=== PATIENT | male | born 1955 | race Caucasian/White ===

== ENCOUNTER 2019-08-10 11:42 | Inpatient (IN) | payer MEDICARE, OTHER ==
[2019-08-10] MEDS ORDERED: DILTIAZEM HCL/D5W 125 MG/125 ML RTUINJ IV PRN ×2 (12:01→13:58)
[2019-08-10] MEDS ORDERED: DILTIAZEM HCL INJ 25 MG/5 ML VIAL IV ONE ×2 (12:01→13:13)
[2019-08-10] MEDS ORDERED: IPRATROPIUM/ALBUTEROL 0.5-2.5 MG/3 ML AMPUL NEB ONE (12:01)
[2019-08-10 12:19] LABS: ABSOLUTE BASOPHILS # (AUTO) 0.1 10^3/uL (0.0-0.2); ABSOLUTE EOSINOPHILS # (AUTO) 1.9 10^3/uL (0.0-0.6); ABSOLUTE MONOCYTES (AUTO) 0.6 10^3/uL (0.1-1.4); ABSOLUTE NEUT (AUTO) 4.2 10^3/uL (1.7-8.2); BASOPHILS % (AUTO) 1.2 % (0-2); EOSINOPHILS % (AUTO) 21.8 % (0-6); HEMATOCRIT 44.9 % (37.9-51.0); HEMOGLOBIN 15.9 g/dL (13.5-17.0); LYMPHOCYTES % (AUTO) 22.3 % (13-45); MEAN CORPUSCULAR HEMOGLOBIN 28.5 pg (27.0-33.4); MEAN CORPUSCULAR HGB CONC 35.3 g/dL (32.0-36.0); MEAN CORPUSCULAR VOLUME 81 fl (80-97); MONOCYTES % (AUTO) 6.6 % (3-13); PLATELET COUNT 254 10^3/uL (150-450); RED BLOOD COUNT 5.57 10^6/uL (4.35-5.55); SEGMENTED NEUTROPHILS % (AUTO) 48.1 % (42-78); TOTAL CELLS COUNTED % (AUTO) 100 %; WHITE BLOOD COUNT 8.8 10^3/uL (4.0-10.5)
--- NOTE | 2019-08-10 12:19 | EKG REPORT ---
SEVERITY:- ABNORMAL ECG - ATRIAL FIBRILLATION WITH RVR MINIMAL ST DEPRESSION, ANTEROLATERAL LEADS : Confirmed by: Billy You MD 10-Aug-2019 12:19:07
--- NOTE | 2019-08-10 12:27 | RADIOLOGY REPORT (SQ) ---
EXAM DESCRIPTION: CHEST SINGLE VIEW IMAGES COMPLETED DATE/TIME: 08/10/2019 12:17 pm REASON FOR STUDY: CHF COMPARISON: None. EXAM PARAMETERS: NUMBER OF VIEWS: One view. TECHNIQUE: Single frontal radiographic view of the chest acquired. RADIATION DOSE: NA LIMITATIONS: None. FINDINGS: LUNGS AND PLEURA: Pulmonary vascular congestion. No pulmonary edema. MEDIASTINUM AND HILAR STRUCTURES: No masses. Contour normal. HEART AND VASCULAR STRUCTURES: Heart size is borderline. BONES: No acute findings. HARDWARE: None in the chest. OTHER: No other significant finding. IMPRESSION: Borderline cardiomegaly without jesus pulmonary edema. TECHNICAL DOCUMENTATION: JOB ID: [id number] 2010 [employer]- All Rights Reserved Reading location - IP/workstation name: [email or web address]
[2019-08-10 12:31] LABS: ALBUMIN 3.6 g/dL (3.5-5.0); ALKALINE PHOSPHATASE 98 U/L (38-126); ANION GAP 5 (5-19); ASPARTATE AMINO TRANSFERASE 31 U/L (17-59); BILIRUBIN,TOTAL 0.9 mg/dL (0.2-1.3); BLOOD UREA NITROGEN 14 mg/dL (7-20); CALCIUM 8.9 mg/dL (8.4-10.2); CARBON DIOXIDE 25 mmol/L (22-30); CHLORIDE 108 mmol/L (98-107); CREATINE KINASE 235 U/L (55-170); GLUCOSE 108 mg/dL (75-110); POTASSIUM 4.2 mmol/L (3.6-5.0); TOTAL PROTEIN 7.2 g/dL (6.3-8.2)
[2019-08-10 12:43] LABS: NT PRO BNP 190 pg/mL (<125)
[2019-08-10 12:48] LABS: TROPONIN I < 0.012 ng/mL
--- NOTE | 2019-08-10 13:07 | ER Document Report ---
Entered by LETITIA ABBASI SCRIBE 08/10/19 1200 Acting as scribe for:JOSETTE CORBETT MD ED Respiratory Problem - General Stated Complaint: SHORTNESS OF BREATH Time Seen by Provider: 08/10/19 11:52 Mode of Arrival: Medic Information source: Patient Notes: This 64 year old male patient presents to the emergency department today with complaints of shortness of breath which has been present since being diagnosed with pneumonia in April. Patient reports that he was admitted to [facility] in [facility] for 3 days in early April for this pneumonia. Patient states after this admission he retired from working, then moved to this area May 23. Patient states he has continued to be short of breath since this admission for pneumonia but the shortness of breath became worse yesterday. Patient states he "felt like he was drowning". Patient states he was discharged with an albuterol inhaler but he is now out of the medicine. Patient states he has chest pain but only if he breathes deeply. Patient denies any leg swelling. EMS reports patient was in atrial fibrillation with a rate bouncing between 140 and 160. They gave him Cardizem 10 mg IV, they did not start a drip. It did slow his rate down into the 130s. - Related Data Allergies/Adverse Reactions: Penicillins Allergy (Verified 08/10/19 14:05) Past Medical History - General Information source: Patient - Social History Smoking Status: Former Smoker - quit 15 years ago Cigarette use (# per day): No Frequency of alcohol use: None Drug Abuse: None Occupation: retired Family History: Reviewed & Not Pertinent - Medical History Medical History: Negative Past Surgical History: Reports: Hx Cholecystectomy, Hx Herniorrhaphy - Ventral. repaired with mesh Review of Systems - Review of Systems Constitutional: No symptoms reported EENT: No symptoms reported Cardiovascular: denies: Chest pain Respiratory: See HPI, Hurts to breathe, Short of breath, Wheezing Gastrointestinal: No symptoms reported Genitourinary: No symptoms reported Male Genitourinary: No symptoms reported Musculoskeletal: denies: Leg swelling, Ankle swelling Skin: No symptoms reported Hematologic/Lymphatic: No symptoms reported Neurological/Psychological: No symptoms reported -: Yes All other systems reviewed and negative Physical Exam - Vital signs Vitals: Resp Pulse Ox 18 92 08/10/19 11:44 08/10/19 11:44 - Notes Notes: Physical Exam: General: Alert, appears well. HEENT: Normocephalic. Atraumatic. PERRL. Extraocular movements intact. Oropharynx clear. Neck: Supple. Non-tender. Respiratory: Mildly tachypneic. Bibasilar rales, rhonchi bilaterally with wheezing. Cardiovascular: Irregularly irregular, tachycardic. Abdominal: Normal Inspection. Non-tender. No distension. Normal Bowel Sounds. Back: No gross abnormalities. Extremities: Moves all four extremities. Upper extremities: Normal inspection. Normal ROM. Lower extremities: Normal inspection. No edema. Normal ROM. Neurological: Normal cognition. AAOx4. Normal speech. Psychological: Normal affect. Normal Mood. Skin: Warm. Dry. Normal color. Course - Vital Signs Vital signs: Temp Pulse Resp BP Pulse Ox 98.9 F 19 140/79 H 96 08/10/19 11:57 08/10/19 18:31 08/10/19 18:31 08/10/19 18:31 - Laboratory Result Diagrams: 08/10/19 11:54 08/10/19 11:54 Laboratory results interpreted by me: 08/10/19 08/10/19 08/10/19 11:54 11:54 11:54 RBC 5.57 H RDW 15.0 H Eos % (Auto) 21.8 H Absolute Eos (auto) 1.9 H Chloride 108 H Creatine Kinase 235 H NT-Pro-B Natriuret Pep 190 H - Diagnostic Test Radiology reviewed: Image reviewed, Reports reviewed - Chest x-ray shows cardiomegaly with mild pulmonary vascular congestion without jesus pulmonary edema. - EKG Interpretation by Nm EKG shows normal: [place], Intervals, QRS Complexes. abnormal: ST-T Waves - M inimal anterolateral ST depression Rate: Tachycardia - 136 Rhythm: A.Fib Critical Care Note - Critical Care Note Total time excluding time spent on procedures (mins): 30 Comments: At least 30 minutes devoted to patient evaluation, history physical, checking labs and x-rays. Reevaluating after interventions. Phone calls to hospitalist to arrange admission. Discharge - Discharge Clinical Impression: New onset atrial fibrillation, Atrial fibrillation with rapid ventricular response, Pulmonary vascular congestion, Shortness of breath, Chronic bronchitis with bronchospasm Condition: Stable Disposition: ADMITTED INPATIENT Admitting Provider: Seymour (Hospitalist) Unit Admitted: IMCU I personally performed the services described in the documentation, reviewed and edited the documentation which was dictated to the scribe in my presence, and it accurately records my words and actions.
[2019-08-10] MEDS ORDERED: FUROSEMIDE INJ/PF 20 MG/2 ML SDV IV ONE (13:14)
[2019-08-10] MEDS ORDERED: LEVALBUTEROL HCL NEB 0.63 MG/3 ML AMPUL NEB PRN (13:54)
[2019-08-10] MEDS ORDERED: ACETAMINOPHEN 325 MG TABLET PO PRN (13:54)
[2019-08-10] MEDS ORDERED: ZOLPIDEM TARTRATE 5 MG TABLET PO PRN (13:54)
[2019-08-10] MEDS ORDERED: ONDANSETRON HCL INJ/PF 4 MG/2 ML SDV IV PRN (13:54)
--- NOTE | 2019-08-10 14:06 | PDOC H&P ---
History of Present Illness Admission Date/PCP: 08/10/19 13:37 Patient complains of: Referred by urgent care center for A. fib with RVR. History of Present Illness: MARY JO FREGOSO is a 64 year old male history of A. fib, mini stroke several years ago used to be on Plavix not anymore, chronic pains in the lower extremities on gabapentin, ex-smoker came to the emergency room with complaints of shortness of breath. He was recently admitted in [place] for shortness of breath found to have pneumonia and treated. Continue to have shortness of breath decided to go to the urgent care center routine EKG was done found to be in A. fib with RVR. Patient was sent to the emergency room for further evaluation. Patient's main complaint is shortness of breath denies any palpitations. In the emergency room loading dose of diltiazem 10 mg was given started on diltiazem drip another dose of 15 mg of diltiazem was given heart rate is around 110 in A. fib now. Patient denies any chest pains and after receiving small dose of Lasix shortness of breath improving. Patient denies any drug use. wants to be DNR/DNI. Past Medical History Cardiac Medical History: Reports: Atrial Fibrillation Neurological Medical History: Reports: Ischemic CVA Past Surgical History Past Surgical History: Reports: Cholecystectomy, Herniorrhaphy - Ventral. repaired with mesh Social History Smoking Status: Former Smoker - quit 15 years ago - Advance Directive Resuscitation Status: Do Not Resuscitate Family History Family History: Reviewed & Not Pertinent Parental Family History Reviewed: Yes - Family history of heart disease. Children Family History Reviewed: Yes Sibling(s) Family History Reviewed.: Yes Review of Systems Constitutional: ABSENT: fatigue, fever(s), weakness Eyes: ABSENT: visual disturbances Ears: ABSENT: hearing changes Nose, Mouth, and Throat: ABSENT: sore throat Cardiovascular: PRESENT: dyspnea on exertion. ABSENT: chest pain, orthropnea Respiratory: PRESENT: dyspnea Gastrointestinal: ABSENT: abdominal pain, constipation, diarrhea, hematemesis, hematochezia, nausea, vomiting Genitourinary: ABSENT: dysuria, hematuria Integumentary: ABSENT: rash, wounds Neurological: ABSENT: abnormal gait, abnormal speech, confusion, dizziness, focal weakness, syncope Psychiatric: ABSENT: anxiety, depression, homidical ideation, suicidal ideation Physical Exam Vital Signs: Temp Pulse Resp BP Pulse Ox 98.9 F 24 H 121/88 H 96 08/10/19 11:57 08/10/19 13:20 08/10/19 13:20 08/10/19 13:20 Intake & Output 08/09/19 08/10/19 08/11/19 06:59 06:59 06:59 Intake Total 3 Balance 3 General appearance: PRESENT: mild distress, well-developed Head exam: PRESENT: atraumatic Eye exam: PRESENT: PERRLA Mouth exam: PRESENT: moist, tongue midline Teeth exam: PRESENT: poor dentation Neck exam: ABSENT: carotid bruit, JVD, lymphadenopathy, thyromegaly Respiratory exam: PRESENT: wheezes Cardiovascular exam: PRESENT: irregular rhythm, tachycardia Pulses: PRESENT: normal dorsalis pedis pul GI/Abdominal exam: PRESENT: normal bowel sounds, soft. ABSENT: distended, guarding, mass, organolmegaly, rebound, tenderness Rectal exam: PRESENT: deferred Neurological exam: PRESENT: alert, awake, oriented to person, oriented to place, oriented to time, oriented to situation, CN II-XII grossly intact. ABSENT: motor sensory deficit Psychiatric exam: PRESENT: appropriate affect, normal mood. ABSENT: homicidal ideation, suicidal ideation Results Laboratory Results: 08/10/19 11:54 08/10/19 11:54 08/10/19 08/10/19 08/10/19 11:54 11:54 12:20 WBC 8.8 RBC 5.57 H Hgb 15.9 Hct 44.9 MCV 81 MCH 28.5 MCHC 35.3 RDW 15.0 H Plt Count 254 Seg Neutrophils % 48.1 Sodium 138.2 Potassium 4.2 Chloride 108 H Carbon Dioxide 25 Anion Gap 5 BUN 14 Creatinine 1.03 Est GFR ( Amer) > 60 Glucose 108 Lactic Acid 1.0 Calcium 8.9 Magnesium 2.1 Total Bilirubin 0.9 AST 31 Alkaline Phosphatase 98 Total Protein 7.2 Albumin 3.6 08/10/19 08/10/19 11:54 11:54 Creatine Kinase 235 H Troponin I < 0.012 NT-Pro-B Natriuret Pep 190 H Impressions: Chest X-Ray 08/10/19 12:00 IMPRESSION: Borderline cardiomegaly without jesus pulmonary edema. Assessment and Plan - Diagnosis (1) Atrial fibrillation with rapid ventricular response Is this a current diagnosis for this admission?: Yes Plan: 08/10/2019-patient is going to be admitted to [facility] as an inpatient with a diagnosis of atrial fib with RVR. To continue Cardizem drip. Echocardiogram was requested. Start on Lovenox 1 mg/kg every 12 hours. GI prophylaxis ini tiated. To start him on atorvastatin 10 mg p.o. nightly. Lipid panel and hemoglobin A1c was requested for tomorrow. Consultation with Dr. Laurent was requested. To do the urine drug screen. (2) Pulmonary vascular congestion Is this a current diagnosis for this admission?: Yes Plan: 08/10/2019-patient came in with complaints of shortness of breath chest x-ray shows cardiomegaly without any jesus edema. After giving a small dose of Lasix in the ER shortness of breath is improving. Echocardiogram is pending at this point. (3) HTN (hypertension) Is this a current diagnosis for this admission?: No Plan: 08/10/2019-patient history of hypertension and not on any medications blood pressure is 120/70 today. To closely monitor the blood pressures on regular basis. (4) Stroke Is this a current diagnosis for this admission?: No Plan: 08/10/2019-patient is given the history of mini strokes several years ago on Plavix for a short while. Presently not on aspirin not on Plavix not on ch olesterol medications. Started on atorvastatin and to start him on aspirin 81 mg p.o. daily.
--- NOTE | 2019-08-10 15:46 | PDOC CONSULTATION ---
Consultation-Blank Consultation: CARDIOLOGY CONSULTATION BY Dr. Jodie Laurent on 08/10/2019. Patient seen at 5 PM on 08/10/2019. 60 minutes spent on the patient with more than 50% of time spent direct patient care. CONSULT REQUESTING PHYSICIANS: Dr. Seymour [facility]. REASON FOR CONSULTATION: Paroxysmal atrial fibrillation, with shortness of breath. HISTORY OF PRESENT ILLNESS: Patient is a 64-year-old male who states that a month or so ago in [place] he had shortness of breath and was found to have a pneumonia and was treated for that. The patient states he continues to have shortness of breath especially with exertion. And hence he came to the emergency room where his EKG showed the patient atrial fibrillation with rapid ventricular response. The patient's claims that he has a past history of atrial fibrillation which is paroxysmal. He states that he has had TIAs x2 in the past and is been on Plavix will still stopped. The patient is an ex-smoker. He denies diabetes mellitus or hypertension. He does have clinical examination of consistent with COPD, but the patient's not on any inhalers. There is no history of thyroid disease. There is no history of angina or coronary artery disease. No history of MD. No history of congestive heart failure. Patient denies any palpitations even when he had atrial fibrillation with rapid response. The patient was started on a Cardizem drip and is converted to sinus rhythm. He has a history of chronic leg pain on gabapentin. Past Medical History Cardiac Medical History: Reports: Atrial Fibrillation Neurological Medical History: Reports: Ischemic CVA Past Surgical History Past Surgical History: Reports: Cholecystectomy, Herniorrhaphy - Ventral. 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 Family History Family History: Reviewed & Not Pertinent Parental Family History Reviewed: Yes - Family history of heart disease. Children Family History Reviewed: Yes Sibling(s) Family History Reviewed.: Yes Current Medications Generic Name Dose Route Start Last Admin Trade Name Freq PRN Reason Stop Dose Admin Acetaminophen 650 mg 08/10/19 13:54 Tylenol 325 Mg Tablet PO 09/09/19 13:53 Q4HP PRN FEVER >101 Apixaban 5 mg 08/10/19 18:00 06/18/20 22:45 Eliquis 5 Mg Tablet PO 09/09/19 17:59 5 mg BID MANUEL Administration Aspirin 81 mg 08/10/19 22:00 08/10/19 22:45 Aspirin 81 Mg Chewable Tablet PO 09/09/19 21:59 81 mg QHS MANUEL Administration Atorvastatin Calcium 10 mg 08/10/19 22:00 08/10/19 22:45 Lipitor 10 Mg Tablet PO 09/09/19 21:59 10 mg QHS MANUEL Administration Diltiazem HCl 30 mg 08/11/19 00:00 08/10/19 23:54 Cardizem 30 Mg Tablet PO 09/10/19 00:00 30 mg Q6 MANUEL Administration Docusate Sodium 100 mg 08/10/19 18:00 08/10/19 22:47 Colace 100 Mg Capsule PO 09/09/19 17:59 Not Given BID MANUEL Famotidine 20 mg 08/10/19 22:00 08/10/19 22:45 Pepcid Inj/Pf 20 Mg/2 Ml Sdv IV 09/09/19 21:59 20 mg Q12 MANUEL Administration Gabapentin 300 mg 08/11/19 06:00 Neurontin 300 Mg Capsule PO 09/10/19 05:59 Q8 MANUEL Levalbuterol HCl 0.63 mg 08/10/19 13:54 Xopenex Neb 0.63 Mg/3 Ml Ampul NEB 09/09/19 13:53 RTQ6HP PRN SHORTNESS OF BREATH Ondansetron HCl 4 mg 08/10/19 13:54 Zofran Inj/Pf 4 Mg/2 Ml Sdv IV 09/09/19 13:53 Q6HP PRN FOR NAUSEA/VOMITING Pantoprazole Sodium 40 mg 08/11/19 06:[address] Tablet PO 09/10/19 05:59 Q6AM MANUEL Sodium Chloride 2.5 ml 08/10/19 14:00 08/10/19 22:46 Saline Flush 2.5 Ml Monoject Prefil Syrin IV 09/09/19 13:59 2.5 ml Q8 MANUEL Administration Zolpidem Tartrate 5 mg 08/10/19 13:54 Ambien 5 Mg Tablet PO 08/17/19 13:53 HSP PRN SLEEP OR INSOMNIA Discontinued Medications Generic Name Dose Route Start Last Admin Trade Name Freq PRN Reason Stop Dose Admin Albuterol/Ipratropium 3 ml 08/10/19 12:01 08/10/19 12:13 Duoneb 3 Ml Ampul NEB 08/10/19 12:02 3 ml NOW ONE Administration Diltiazem HCl 10 mg 08/10/19 12:01 08/10/19 12:13 Cardizem Inj 25 Mg/5 Ml Vial IV 08/10/19 12:02 10 mg NOW ONE Administration Diltiazem HCl 15 mg 08/10/19 13:13 08/10/19 13:25 Cardizem Inj 25 Mg/5 Ml Vial IV 08/10/19 13:14 15 mg NOW ONE Administration Diltiazem HCl 30 mg 08/10/19 21:00 Cardizem 30 Mg Tablet PO 09/09/19 20:59 Q6A MANUEL Enoxaparin Sodium 70 mg 08/10/19 22:00 Lovenox Inj 80 Mg/0.8 Ml Disp.Syrin SUBCUT 09/09/19 21:59 Q12 MANUEL Furosemide 20 mg 08/10/19 13:14 08/10/19 13:25 Lasix Inj/Pf 20 Mg/2 Ml Sdv IV 08/10/19 13:15 20 mg NOW ONE Administration Gabapentin 300 mg 08/10/19 22:45 08/10/19 22:45 Neurontin 300 Mg Capsule PO 08/10/19 22:46 300 mg NOW ONE Administration Diltiazem HCl 125 mg in 125 mls @ 0 mls/hr 08/10/19 12:01 08/10/19 15:22 Cardizem Rtu Inj 125 Mg-D5w 125 Ml Premix IV 09/09/19 12:00 Infused CONTINUOUS PRN Titration THIS MED IS NOT "PRN" Protocol Titrate Diltiazem HCl 125 mg in 125 mls @ 0 mls/hr 08/10/19 13:58 Cardizem Rtu Inj 125 Mg-D5w 125 Ml Premix IV 09/09/19 13:57 CONTINUOUS PRN THIS MED IS NOT "PRN" Protocol Titrate Review of Systems Constitutional: ABSENT: fatigue, fever(s), weakness Eyes: ABSENT: visual disturbances Ears: ABSENT: hearing changes Nose, Mouth, and Throat: ABSENT: sore throat Cardiovascular: PRESENT: dyspnea on exertion. ABSENT: chest pain, orthropnea Respiratory: PRESENT: dyspnea Gastrointestinal: ABSENT: abdominal pain, constipation, diarrhea, hematemesis, hematochezia, nausea, vomiting Genitourinary: ABSENT: dysuria, hematuria Integumentary: ABSENT: rash, wounds Neurological: ABSENT: abnormal gait, abnormal speech, confusion, dizziness, focal weakness, syncope Psychiatric: ABSENT: anxiety, depression, homidical ideation, suicidal ideation PHYSICAL EXAMINATION: The patient is well-built and well-nourished in no acute distress. Selected Entries 08/10/19 08/10/19 08/10/19 14:40 14:50 19:45 Heart Rate ( 64 Monitors) Respiratory 25 H 20 Rate Blood Pressure 118/63 Blood Pressure 81 Mean O2 Sat by Pulse 96 Oximetry Oxygen Flow 2.00 Rate Oxygen Delivery Nasal Cannula Method HEAD: Is atraumatic normocephalic. EYES: Pupils equal round regular reactive light accommodation. Extraocular movements are normal. There is no conjunctival pallor. There is no scleral icterus. EARS: Tympanic membranes are intact. External auditory canals are clear. NOSE: There is no deviated nasal septum. There is no inflammation of the nasal mucous membrane. MOUTH: Mucous membranes of mouth are moist. Tongue is moist. There is no ulcers. TONGUE: There is no redness of the oropharynx. There is no exudates. SKIN: There is no skin rashes. There is no petechia or ecchymosis. There is no skin lesions. NECK: Supple. There is no JVD carotids are equal there is no bruit. There is no lymphadenopathy. There is no accessory muscle respiration use. Trachea central. LUNGS: There is diminished air entry prolonged expiration. There is no rhonchi rales or wheezing. On percussion there is hyperresonance. There is no chest wall tenderness. HEART: S1-S2 is heard. S1 now is of normal intensity. There is no S3 gallop. There is an S4 gallop. There is systolic murmur left sternal border and the apex with no radiation. There is no rub. ABDOMEN: Soft. There is nontender. There is no paraspinal megaly. Bowel sounds are well heard. EXTREMITIES: Femorals are well felt. Leg pulses well felt. There is no pedal edema. There is no DVT or cellulitis. There is no DVT or cellulitis. There is no cyanosis or clubbing. 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 PSYCHIATRIC: The patient judgment insight are intact his affect is normal. Labs- Entire Visit 08/10/19 08/10/19 08/10/19 11:54 11:54 11:54 WBC 8.8 RBC 5.57 H Hgb 15.9 Hct 44.9 MCV 81 MCH 28.5 MCHC 35.3 RDW 15.0 H Plt Count 254 Lymph % (Auto) 22.3 Fannin % (Auto) 6.6 Eos % (Auto) 21.8 H Baso % (Auto) 1.2 Absolute Neuts (auto) 4.2 Absolute Lymphs (auto) 2.0 Absolute Monos (auto) 0.6 Absolute Eos (auto) 1.9 H Absolute Basos (auto) 0.1 Seg Neutrophils % 48.1 Sodium 138.2 Potassium 4.2 Chloride 108 H Carbon Dioxide 25 Anion Gap 5 BUN 14 Creatinine 1.03 Est GFR ( Amer) > 60 Est GFR (MDRD) Non-Af > 60 Glucose 108 Lactic Acid Calcium 8.9 Magnesium 2.1 Total Bilirubin 0.9 Direct Bilirubin 0.0 Neonat Total Bilirubin Not Reportable Neonat Direct Bilirubin Not Reportable Neonat Indirect Bili Not Reportable AST 31 ALT 26 Alkaline Phosphatase 98 Creatine Kinase 235 H Troponin I < 0.012 NT-Pro-B Natriuret Pep 190 H Total Protein 7.2 Albumin 3.6 Urine Color Urine Appearance Urine pH Ur Specific Sullivan Urine Protein Urine Glucose (UA) Urine Ketones Urine Blood Urine Nitrite Urine Bilirubin Urine Urobilinogen Ur Leukocyte Esterase Urine WBC (Auto) Urine RBC (Auto) U Hyaline Cast (Auto) Squamous Epi Cells Auto Urine Mucus (Auto) Urine Ascorbic Acid Urine Opiates Screen Urine Methadone Screen Ur Barbiturates Screen Ur Phencyclidine Scrn Ur Amphetamines Screen U Benzodiazepines Scrn Urine Cocaine Screen U Marijuana (THC) Screen 08/10/19 08/10/19 08/10/19 12:20 15:19 15:19 WBC RBC Hgb Hct MCV MCH MCHC RDW Plt Count Lymph % (Auto) Fannin % (Auto) Eos % (Auto) Baso % (Auto) Absolute Neuts (auto) Absolute Lymphs (auto) Absolute Monos (auto) Absolute Eos (auto) Absolute Basos (auto) Seg Neutrophils % Sodium Potassium Chloride Carbon Dioxide Anion Gap BUN Creatinine Est GFR ( Amer) Est GFR (MDRD) Non-Af Glucose Lactic Acid 1.0 Calcium Magnesium Total Bilirubin Direct Bilirubin Neonat Total Bilirubin Neonat Direct Bilirubin Neonat Indirect Bili AST ALT Alkaline Phosphatase Creatine Kinase Troponin I NT-Pro-B Natriuret Pep Total Protein Albumin Urine Color STRAW Urine Appearance CLEAR Urine pH 6.0 Ur Specific Sullivan 1.009 Urine Protein 100 H Urine Glucose (UA) NEGATIVE Urine Ketones NEGATIVE Urine Blood SMALL H Urine Nitrite NEGATIVE Urine Bilirubin NEGATIVE Urine Urobilinogen NEGATIVE Ur Leukocyte Esterase NEGATIVE Urine WBC (Auto) 1 Urine RBC (Auto) 2 U Hyaline Cast (Auto) 3 Squamous Epi Cells Auto <1 Urine Mucus (Auto) RARE Urine Ascorbic Acid NEGATIVE Urine Opiates Screen NEGATIVE Urine Methadone Screen NEGATIVE Ur Barbiturates Screen NEGATIVE Ur Phencyclidine Scrn NEGATIVE Ur Amphetamines Screen NEGATIVE U Benzodiazepines Scrn NEGATIVE Urine Cocaine Screen NEGATIVE U Marijuana (THC) Screen NEGATIVE 08/10/19 08/10/19 18:02 23:37 WBC RBC Hgb Hct MCV MCH MCHC RDW Plt Count Lymph % (Auto) Fannin % (Auto) Eos % (Auto) Baso % (Auto) Absolute Neuts (auto) Absolute Lymphs (auto) Absolute Monos (auto) Absolute Eos (auto) Absolute Basos (auto) Seg Neutrophils % Sodium Potassium Chloride Carbon Dioxide Anion Gap BUN Creatinine Est GFR ( Amer) Est GFR (MDRD) Non-Af Glucose Lactic Acid Calcium Magnesium Total Bilirubin Direct Bilirubin Neonat Total Bilirubin Neonat Direct Bilirubin Neonat Indirect Bili AST ALT Alkaline Phosphatase Creatine Kinase Troponin I < 0.012 < 0.012 NT-Pro-B Natriuret Pep Total Protein Albumin Urine Color Urine Appearance Urine pH Ur Specific Sullivan Urine Protein Urine Glucose (UA) Urine Ketones Urine Blood Urine Nitrite Urine Bilirubin Urine Urobilinogen Ur Leukocyte Esterase Urine WBC (Auto) Urine RBC (Auto) U Hyaline Cast (Auto) Squamous Epi Cells Auto Urine Mucus (Auto) Urine Ascorbic Acid Urine Opiates Screen Urine Methadone Screen Ur Barbiturates Screen Ur Phencyclidine Scrn Ur Amphetamines Screen U Benzodiazepines Scrn Urine Cocaine Screen U Marijuana (THC) Screen Chest X-Ray 08/10/19 12:00 IMPRESSION: Borderline cardiomegaly without jesus pulmonary edema. The patient's first EKG shows atrial fibrillation with a rapid ventricular response. Diffuse nonspecific ST-T changes. Subsequent EKG shows atrial fibrillation with nonspecific ST changes. Subsequent EKG shows sinus rhythm with frequent APCs. Minor nonspecific lateral T wave changes. 1. Paroxysmal atrial fibrillation. At present converted to sinus rhythm. Hence would recommend discontinue the patient's Cardizem drip and place the patient on p.o. Cardizem. The patient has a prior history of to CVS. Hence his Socrates Vascor is at least 3. Hence chronic chronic anticoagulation indicated. Hence we will start the patient on Eliquis. The patient has no bleeding contraindications for starting Eliquis. The risks benefits and stroke prophylaxis benefits discussed with the patient the risk of bleeding also discussed. 2. COPD: No evidence of acute exacerbation. 3. Chronic pain syndrome with lower extremity pain. . History of TIA x2 in the past. Await echocardiogram. Medical regimen management plan discussed with the attending provider on the case. Medical decision making is of high complexity. 60 minutes spent with the patient with more than 50% time spent on direct patient care. Will follow.
[2019-08-10 15:49] LABS: URINE AMPHETAMINES SCREEN NEGATIVE; URINE BARBITURATES SCREEN NEGATIVE; URINE BENZODIAZEPINES SCREEN NEGATIVE; URINE COCAINE SCREEN NEGATIVE; URINE MARIJUANA (THC) SCREEN NEGATIVE; URINE METHADONE SCREEN NEGATIVE; URINE PHENCYCLIDINE SCREEN NEGATIVE
--- NOTE | 2019-08-10 18:37 | EKG REPORT ---
SEVERITY:- ABNORMAL ECG - ATRIAL FIBRILLATION, V-RATE [id number] BORDERLINE T ABNORMALITIES, ANT-LAT LEADS : Confirmed by: Billy You MD 10-Aug-2019 18:37:19
--- NOTE | 2019-08-10 18:37 | EKG REPORT ---
SEVERITY:- ABNORMAL ECG - SINUS RHYTHM MULTIPLE ATRIAL PREMATURE COMPLEXES NONSPECIFIC T ABNORMALITIES, LATERAL LEADS : Confirmed by: Billy You MD 10-Aug-2019 18:36:57
[2019-08-10 19:11] LABS: APPEARANCE,URINE CLEAR; BILIRUBIN,URINE NEGATIVE (NEGATIVE); COLOR,URINE STRAW; GLUCOSE, URINE NEGATIVE (NEGATIVE); KETONES,URINE NEGATIVE (NEGATIVE); LEUKOCYTE ESTERASE,URINE NEGATIVE (NEGATIVE); NITRITE,URINE NEGATIVE (NEGATIVE); PROTEIN,URINE 100 mg/dL (NEGATIVE); URINE SPECIFIC GRAVITY 1.009; UROBILINOGEN,URINE NEGATIVE mg/dL (<2.0)
[2019-08-10] MEDS ORDERED: DILTIAZEM HCL 30 MG TABLET PO SCH (21:00)
--- NOTE | 2019-08-10 21:40 | XCELERA REPORT ---
[address] [address] Transthoracic Echocardiogram Report Name: MARY JO FREGOSO Age: 64 yrs Gender: Male : 1955 Patient Status: Inpatient Patient Location: [place] [address]^A Study Date: 08/10/2019 05:30 PM Height: 72 in Weight: 220 lb BSA: 2.2 m2 Procedure: A two-dimensional transthoracic echocardiogram with color flow and Doppler was performed. Study Quality: Fair. Reason For Study: af History: Atrial Fibrillation. Ordering Physician: DANIELA MILNER Performed By: Lauren Szymanski Interpretation Summary The left ventricle is normal in size. There is normal left ventricular wall thickness. LV EF is > shani 65% Left ventricular systolic function is normal. Doppler measurements suggest impaired left ventricular relaxation, which is associated with grade I/IV or mild diastolic dysfunction The left ventricular wall motion is normal. There is no thrombus. No ASD,VSD,or PFO. The right ventricle is normal in size and function. The right ventricle is not well visualized secondary to technical limitations The right atrium is normal. The left atrial size is normal. There is no evidence of mitral valve prolapse. There is no vegetation seen on the mitral valve. There is no mitral valve stenosis. There is a trace amount of mitral regurgitation There is no aortic valvular vegetation. There is no aortic valve stenosis There is no LVOT obstruction. No aortic regurgitation is present. There is no tricuspid stenosis. There is a trace amount of tricuspid regurgitation Tricuspid regurgitation jet envelope not well defined to measure RV systolic pressure accurately. There is no pulmonic valvular stenosis. There is a trace amount of pulmonic regurgitation The aortic root is normal size. The inferior vena cava appeared normal and decreased > 50% with respiration (RAP 5-10 mmHg) There is no pericardial effusion. MMode/2D Measurements & Calculations RVDd: 3.9 cm LVIDd: 6.0 cm FS: 38.3 % Ao root diam: 3.1 cm IVSd: 1.00 cm LVIDs: 3.7 cm EDV(Teich): 181.8 ml Ao root area: 7.4 cm2 LVPWd: 0.95 cm ESV(Teich): 58.7 ml LA dimension: 4.0 cm EF(Teich): 67.7 % Doppler Measurements & Calculations MV E max tony: MV P1/2t max tony: Ao V2 max: LV V1 max P.7 cm/sec 88.0 cm/sec 158.0 cm/sec 5.3 mmHg MV A max tony: MV P1/2t: 71.5 msec Ao max PG: LV V1 max: 84.9 cm/sec MVA(P1/2t): 3.1 cm2 10.0 mmHg 115.2 cm/sec MV E/A: 0.94 MV dec slope: 360.6 cm/sec2 MV dec time: 0.25 sec PA V2 max: MV P1/2t-pr_phl: 199.3 cm/sec 71.5 msec PA max P.9 mmHg Left Ventricle The left ventricle is normal in size. There is normal left ventricular wall thickness. LV EF is > shani 65%. Left ventricular systolic function is normal. Doppler measurements suggest impaired left ventricular relaxation, which is associated with grade I/IV or mild diastolic dysfunction. The left ventricular wall motion is normal. There is no thrombus. No ASD,VSD,or PFO. Right Ventricle The right ventricle is normal in size and function. The right ventricle is not well visualized secondary to technical limitations. Atria The right atrium is normal. The left atrial size is normal. Mitral Valve There is no evidence of mitral valve prolapse. There is no vegetation seen on the mitral valve. There is no mitral valve stenosis. There is a trace amount of mitral regurgitation. Aortic Valve There is no aortic valvular vegetation. There is no aortic valve stenosis. There is no LVOT obstruction. No aortic regurgitation is present. Tricuspid Valve There is no tricuspid stenosis. There is a trace amount of tricuspid regurgitation. Tricuspid regurgitation jet envelope not well defined to measure RV systolic pressure accurately. Pulmonic Valve There is no pulmonic valvular stenosis. There is a trace amount of pulmonic regurgitation. Great Vessels The aortic root is normal size. The inferior vena cava appeared normal and decreased > 50% with respiration (RAP 5-10 mmHg). Effusions There is no pericardial effusion. : DANIELA MILNER Lakshmi
[2019-08-10] MEDS ORDERED: ATORVASTATIN CALCIUM 10 MG TABLET PO SCH (22:00)
[2019-08-10] MEDS ORDERED: ASPIRIN 81 MG TABLET, CHEWABLE PO SCH (22:00)
[2019-08-10] MEDS ORDERED: ENOXAPARIN SODIUM INJ 80 MG/0.8 ML DISP.SYRIN SUBCUT SCH (22:00)
[2019-08-10] MEDS ORDERED: GABAPENTIN 300 MG CAPSULE PO ONE (22:45)
[2019-08-10] MEDS: APIXABAN 5 MG TABLET PO SCH (22:45)
[2019-08-10] MEDS: FAMOTIDINE INJ/PF 20 MG/2 ML SDV IV SCH (22:45)
[2019-08-10] MEDS: DOCUSATE SODIUM 100 MG CAPSULE PO SCH (22:47)
[2019-08-10] MEDS: DILTIAZEM HCL 30 MG TABLET PO SCH (23:54)
[2019-08-11] MEDS: DILTIAZEM HCL 30 MG TABLET PO SCH (05:30)
[2019-08-11] MEDS ORDERED: PANTOPRAZOLE SODIUM 40 MG TABLET.DR PO SCH (06:00)
[2019-08-11] MEDS ORDERED: GABAPENTIN 300 MG CAPSULE PO SCH (06:00)
[2019-08-11 06:05] LABS: HEMATOCRIT 41.3 % (37.9-51.0); HEMOGLOBIN 14.4 g/dL (13.5-17.0); MEAN CORPUSCULAR HEMOGLOBIN 28.1 pg (27.0-33.4); MEAN CORPUSCULAR HGB CONC 34.8 g/dL (32.0-36.0); MEAN CORPUSCULAR VOLUME 81 fl (80-97); PLATELET COUNT 220 10^3/uL (150-450); RED BLOOD COUNT 5.11 10^6/uL (4.35-5.55); RED CELL DISTRIBUTION WIDTH 15.7 % (11.5-14.0); WHITE BLOOD COUNT 7.7 10^3/uL (4.0-10.5)
[2019-08-11 06:13] LABS: INTERNATIONAL RATION (INR) 1.19; PROTHROMBIN TIME 15.2 SEC (11.4-15.4)
[2019-08-11 06:24] LABS: ALBUMIN 2.9 g/dL (3.5-5.0); ALKALINE PHOSPHATASE 80 U/L (38-126); ANION GAP 7 (5-19); ASPARTATE AMINO TRANSFERASE 22 U/L (17-59); BILIRUBIN,TOTAL 0.8 mg/dL (0.2-1.3); BLOOD UREA NITROGEN 17 mg/dL (7-20); CALCIUM 8.7 mg/dL (8.4-10.2); CARBON DIOXIDE 23 mmol/L (22-30); CHLORIDE 108 mmol/L (98-107); CHOLESTEROL 198.28 mg/dL (0-200); GLUCOSE 112 mg/dL (75-110); POTASSIUM 4.1 mmol/L (3.6-5.0); TOTAL PROTEIN 6.1 g/dL (6.3-8.2); TRIGLYCERIDES 151 mg/dL (<150)
[2019-08-11 06:35] LABS: DIRECT LDL 141 mg/dL (<100)
[2019-08-11 06:40] LABS: VLDL CHOLESTEROL 30.2 mg/dL (10-31)
[2019-08-11] MEDS ORDERED: DILTIAZEM HCL 120 MG CAP.SR.24H PO SCH (10:00)
[2019-08-11] MEDS: FAMOTIDINE INJ/PF 20 MG/2 ML SDV IV SCH (10:06)
[2019-08-11] MEDS: APIXABAN 5 MG TABLET PO SCH (10:06)
[2019-08-11] MEDS: DOCUSATE SODIUM 100 MG CAPSULE PO SCH (10:06)
--- NOTE | 2019-08-11 12:58 | PDOC DISCHARGE SUMMARY ---
Impression - Admit/DC Date/PCP Admission Date/Primary Care Provider: 08/10/19 13:37 Discharge Date: 08/11/19 - Discharge Diagnosis (1) Atrial fibrillation with rapid ventricular response Is this a current diagnosis for this admission?: Yes (2) Pulmonary vascular congestion Is this a current diagnosis for this admission?: Yes (3) HTN (hypertension) Is this a current diagnosis for this admission?: No (4) Stroke Is this a current diagnosis for this admission?: No - Assessment Summary: (1) Atrial fibrillation with rapid ventricular response Is this a current diagnosis for this admission?: Yes Plan: 08/10/2019-patient is going to be admitted to [facility] as an inpatient with a diagnosis of atrial fib with RVR. To continue Cardizem drip. Echocardiogram was requested. Start on Lovenox 1 mg/kg every 12 hours. GI prophylaxis initiated. To start him on atorvastatin 10 mg p.o. nightly. Lipid panel and hemoglobin A1c was requested for tomorrow. Consultation with Dr. Phillips was requested. To do the urine drug screen. 08/11/2019-patient admitted with A. fib with RVR after starting Cardizem drip spontaneously converted. Awake COPD since mild sinus arrhythmia heart rate is around 70s. Case was discussed with Dr. Phillips his recommendation is to send the patient home on Eliquis 5 mg p.o. twice daily, Cardizem CD 120 mg p.o. daily. Patient is advised to follow-up with Dr. juarez next week. (2) Pulmonary vascular congestion Is this a current diagnosis for this admission?: Yes Plan: 08/10/2019-patient came in with complaints of shortness of breath chest x-ray shows cardiomegaly without any jesus edema. After giving a small dose of Lasix in the ER shortness of breath is improving. Echocardiogram is pending at this point. 08/11/2019-echocardiogram shows EF of more than 65%. EF is normal. (3) HTN (hypertension) Is this a current diagnosis for this admission?: No Plan: 08/10/2019-patient history of hypertension and not on any medications blood pressure is 120/70 today. To closely monitor the blood pressures on regular basis. 08/11/2019-blood pressure today is 124/60. Stable. Patient is advised to low- salt diet and given a prescription for Cardizem CD 120 mg daily. (4) Stroke Is this a current diagnosis for this admission?: No Plan: 08/10/2019-patient is given the history of mini strokes several years ago on Plavix for a short while. Presently not on aspirin not on Plavix not on cholesterol medications. Started on atorvastatin and to start him on aspirin 81 mg p.o. daily. 08/11/19-patient is advised to continue aspirin, atorvastatin at home to prevent further strokes in future. - Additional Information Resuscitation Status: Do Not Resuscitate Discharge Diet: Cardiac Discharge Activity: Activity As Tolerated Referrals: AXEL PHILLIPS MD [ACTIVE STAFF] - 08/15/19 12:00 pm Prescriptions: Aspirin [Aspirin 81 mg Chewable Tablet] 81 mg PO QHS 30 Days #30 tab.chew Diltiazem HCl [Cardizem Cd 120 mg Capsule] 120 mg PO DAILY #30 cap.sr.24h Apixaban [Eliquis 5 mg Tablet] 5 mg PO BID #60 tablet Atorvastatin Calcium [Lipitor 10 mg Tablet] 10 mg PO QHS 30 Days #30 tablet Home Medications: Aspirin [Adult Low Dose Aspirin EC] 81 mg PO DAILY 08/10/19 Gabapentin [Neurontin 300 mg Capsule] 300 mg PO Q8 08/10/19 Apixaban [Eliquis 5 mg Tablet] 5 mg PO BID #60 tablet 08/11/19 Aspirin [Aspirin 81 mg Chewable Tablet] 81 mg PO QHS 30 Days #30 tab.chew 08/11/19 Atorvastatin Calcium [Lipitor 10 mg Tablet] 10 mg PO QHS 30 Days #30 tablet 08/11/19 Diltiazem HCl [Cardizem Cd 120 mg Capsule] 120 mg PO DAILY #30 cap.sr.24h 08/11/19 Gabapentin [Neurontin 300 mg Capsule] 300 mg PO Q8 capsule 08/11/19 History of Present Illiness History of Present Illness: MARY JO FREGOSO is a 64 year old male history of A. fib, mini stroke several years ago used to be on Plavix not anymore, chronic pains in the lower extremities on gabapentin, ex-smoker came to the emergency room with complaints of shortness of breath. He was recently admitted in [place] for shortness of breath found to have pneumonia and treated. Continue to have shortness of breath decided to go to the urgent care center routine EKG was done found to be in A. fib with RVR. Patient was sent to the emergency room for further evaluation. Patient's main complaint is shortness of breath denies any palpitations. In the emergency room loading dose of diltiazem 10 mg was given started on diltiazem drip another dose of 15 mg of diltiazem was given heart rate is around 110 in A. fib now. Patient denies any chest pains and after receiving small dose of Lasix shortness of breath improving. Patient denies any drug use. wants to be DNR/DNI. Hospital Course Hospital Course: 64 year old male history of A. fib, mini stroke several years ago used to be on Plavix not anymore, chronic pains in the lower extremities on gabapentin, ex- smoker came to the emergency room with complaints of shortness of breath. He was recently admitted in [place] for shortness of breath found to have pneumonia and treated. Continue to have shortness of breath decided to go to the urgent care center routine EKG was done found to be in A. fib with RVR. Patient was sent to the emergency room for further evaluation. Patient's main complaint is shortness of breath denies any palpitations. In the emergency room loading dose of diltiazem 10 mg was given started on diltiazem drip another dose of 15 mg of diltiazem was given heart rate is around 110 in A. fib now. Patient denies any chest pains and after receiving small dose of Lasix shortness of breath improving. Patient denies any drug use. wants to be DNR/DNI. 08/11/2019-patient was started on Cardizem drip converted to sinus rhythm. As per cardiology recommendation started on Eliquis 5 mg twice a day. Patient is going to go home on atorvastatin, aspirin, Eliquis and Cardizem CD 120 mg p.o. daily. Cleared by Dr. Phillips for the patient to go home. Physical Exam Vital Signs: Temp Pulse Resp BP Pulse Ox 97.9 F 71 16 117/54 L 94 08/11/19 07:20 08/11/19 09:15 08/11/19 09:15 08/11/19 07:20 08/11/19 09:15 Intake & Output 08/10/19 08/11/19 08/12/19 06:59 06:59 06:59 Intake Total 525 525 Output Total 1250 400 Balance -725 125 Weight 94 kg General appearance: PRESENT: no acute distress, obese Head exam: PRESENT: atraumatic Eye exam: PRESENT: PERRLA Ear exam: PRESENT: bleeding Mouth exam: PRESENT: neck supple Teeth exam: PRESENT: poor dentation Neck exam: ABSENT: carotid bruit, JVD, lymphadenopathy, thyromegaly Respiratory exam: PRESENT: decreased breath sounds Cardiovascular exam: PRESENT: RRR. ABSENT: diastolic murmur, rubs, systolic murmur Pulses: PRESENT: normal dorsalis pedis pul GI/Abdominal exam: PRESENT: normal bowel sounds, soft. ABSENT: distended, guarding, mass, organolmegaly, rebound, tenderness Rectal exam: PRESENT: deferred Extremities exam: PRESENT: full ROM. ABSENT: calf tenderness, clubbing, pedal edema Neurological exam: PRESENT: alert, awake, oriented to person, oriented to place, oriented to time, oriented to situation, CN II-XII grossly intact. ABSENT: motor sensory deficit Psychiatric exam: PRESENT: appropriate affect, normal mood. ABSENT: homicidal ideation, suicidal ideation Results Laboratory Results: WBC 7.7 10^3/uL (4.0-10.5) 08/11/19 05:23 RBC 5.11 10^6/uL (4.35-5.55) 08/11/19 05:23 Hgb 14.4 g/dL (13.5-17.0) 08/11/19 05:23 Hct 41.3 % (37.9-51.0) 08/11/19 05:23 MCV 81 fl (80-97) 08/11/19 05:23 MCH 28.1 pg (27.0-33.4) 08/11/19 05:23 MCHC 34.8 g/dL (32.0-36.0) 08/11/19 05:23 RDW 15.7 % (11.5-14.0) H 08/11/19 05:23 Plt Count 220 10^3/uL (150-450) 08/11/19 05:23 Lymph % (Auto) 22.3 % (13-45) 08/10/19 11:54 [place] % (Auto) 6.6 % (3-13) 08/10/19 11:54 Eos % (Auto) 21.8 % (0-6) H 08/10/19 11:54 Baso % (Auto) 1.2 % (0-2) 08/10/19 11:54 Absolute Neuts (auto) 4.2 10^3/uL (1.7-8.2) 08/10/19 11:54 Absolute Lymphs (auto) 2.0 10^3/uL (0.5-4.7) 08/10/19 11:54 Absolute Monos (auto) 0.6 10^3/uL (0.1-1.4) 08/10/19 11:54 Absolute Eos (auto) 1.9 10^3/uL (0.0-0.6) H 08/10/19 11:54 Absolute Basos (auto) 0.1 10^3/uL (0.0-0.2) 08/10/19 11:54 Seg Neutrophils % 48.1 % (42-78) 08/10/19 11:54 PT 15.2 SEC (11.4-15.4) 08/11/19 05:23 INR 1.19 08/11/19 05:23 Sodium 137.5 mmol/L (137-145) 08/11/19 05:23 Potassium 4.1 mmol/L (3.6-5.0) 08/11/19 05:23 Chloride 108 mmol/L (98-107) H 08/11/19 05:23 Carbon Dioxide 23 mmol/L (22-30) 08/11/19 05:23 Anion Gap 7 (5-19) 08/11/19 05:23 BUN 17 mg/dL (7-20) 08/11/19 05:23 Creatinine 1.06 mg/dL (0.52-1.25) 08/11/19 05:23 Est GFR ( Amer) > 60 (>60) 08/11/19 05:23 Est GFR (MDRD) Non-Af > 60 (>60) 08/11/19 05:23 Glucose 112 mg/dL (75-110) H 08/11/19 05:23 Hemoglobin A1c % 5.1 % (4.7-6.0) 08/11/19 05:23 Lactic Acid 1.0 mmol/L (0.7-2.1) 08/10/19 12:20 Calcium 8.7 mg/dL (8.4-10.2) 08/11/19 05:23 Magnesium 2.1 mg/dL (1.6-2.3) 08/11/19 05:23 Total Bilirubin 0.8 mg/dL (0.2-1.3) 08/11/19 05:23 Direct Bilirubin 0.0 mg/dL (0.0-0.4) 08/11/19 05:23 Neonat Total Bilirubin Not Reportable 08/11/19 05:23 Neonat Direct Bilirubin Not Reportable 08/11/19 05:23 Neonat Indirect Bili Not Reportable 08/11/19 05:23 AST 22 U/L (17-59) 08/11/19 05:23 ALT 21 U/L (<50) 08/11/19 05:23 Alkaline Phosphatase 80 U/L (38-126) 08/11/19 05:23 Creatine Kinase 235 U/L (55-170) H 08/10/19 11:54 Troponin I < 0.012 ng/mL 08/11/19 05:23 NT-Pro-B Natriuret Pep 190 pg/mL (<125) H 08/10/19 11:54 Total Protein 6.1 g/dL (6.3-8.2) L 08/11/19 05:23 Albumin 2.9 g/dL (3.5-5.0) L 08/11/19 05:23 Triglycerides 151 mg/dL (<150) H 08/11/19 05:23 Cholesterol 198.28 mg/dL (0-200) 08/11/19 05:23 LDL Cholesterol Direct 141 mg/dL (<100) H 08/11/19 05:23 VLDL Cholesterol 30.2 mg/dL (10-31) 08/11/19 05:23 HDL Cholesterol 30 mg/dL (>40) L 08/11/19 05:23 TSH 0.90 uIU/mL (0.47-4.68) 08/11/19 05:23 Urine Color STRAW 08/10/19 15:19 Urine Appearance CLEAR 08/10/19 15:19 Urine pH 6.0 (5.0-9.0) 08/10/19 15:19 Ur Specific [place] 1.009 08/10/19 15:19 Urine Protein 100 mg/dL (NEGATIVE) H 08/10/19 15:19 Urine Glucose (UA) NEGATIVE mg/dL (NEGATIVE) 08/10/19 15:19 Urine Ketones NEGATIVE mg/dL (NEGATIVE) 08/10/19 15:19 Urine Blood SMALL (NEGATIVE) H 08/10/19 15:19 Urine Nitrite NEGATIVE (NEGATIVE) 08/10/19 15:19 Urine Bilirubin NEGATIVE (NEGATIVE) 08/10/19 15:19 Urine Urobilinogen NEGATIVE mg/dL (<2.0) 08/10/19 15:19 Ur Leukocyte Esterase NEGATIVE (NEGATIVE) 08/10/19 15:19 Urine WBC (Auto) 1 /HPF 08/10/19 15:19 Urine RBC (Auto) 2 /HPF 08/10/19 15:19 U Hyaline Cast (Auto) 3 /LPF 08/10/19 15:19 Squamous Epi Cells Auto <1 /HPF 08/10/19 15:19 Urine Mucus (Auto) RARE /LPF 08/10/19 15:19 Urine Ascorbic Acid NEGATIVE (NEGATIVE) 08/10/19 15:19 Urine Opiates Screen NEGATIVE 08/10/19 15:19 Urine Methadone Screen NEGATIVE 08/10/19 15:19 Ur Barbiturates Screen NEGATIVE 08/10/19 15:19 Ur Phencyclidine Scrn NEGATIVE 08/10/19 15:19 Ur Amphetamines Screen NEGATIVE 08/10/19 15:19 U Benzodiazepines Scrn NEGATIVE 08/10/19 15:19 Urine Cocaine Screen NEGATIVE 08/10/19 15:19 U Marijuana (THC) Screen NEGATIVE 08/10/19 15:19 08/10/19 08/10/19 08/10/19 11:54 18:02 23:37 Troponin I < 0.012 < 0.012 < 0.012 NT-Pro-B Natriuret Pep 190 H 08/11/19 05:23 Troponin I < 0.012 NT-Pro-B Natriuret Pep Impressions: Chest X-Ray 08/10/19 12:00 IMPRESSION: Borderline cardiomegaly without jesus pulmonary edema. Plan Plan of Treatment: Patient is advised to be compliant with medications prescriptions were given for Eliquis 5 mg p.o. twice daily, atorvastatin, aspirin, Cardizem CD 120 mg daily. Patient is advised to follow-up with Dr. Phillips next week. Time Spent: Greater than 30 Minutes Stroke Is this a Stroke Patient?: No Acute Heart Failure - Is this a Heart Failure Patient?: No
[2019-08-11 14:21] VITALS: BP 133/58
--- NOTE | 2019-08-11 17:47 | Progress Note ---
Provider Note Provider Note: CARDIOLOGY PROGRESS NOTE by Dr. Jodie Laurent on 08/11/2019.\ SUBJECTIVE: The patient remains in sinus rhythm. He denies any chest pain or discomfort. He states his shortness of breath is very much improved by inhalers. Hence he does have COPD. There is no arrhythmias seen on the monitor. There is no TIA CVA symptoms. There is no bleeding on Eliquis. PHYSICAL EXAMINATION: The patient is well-built and well-nourished. In no acute distress. Selected Entries 08/11/19 08/11/19 10:00 13:56 Temperature 97.9 F Pulse Rate 71 Respiratory 16 Rate Blood Pressure 133/58 H [Left Upper Arm ] O2 Sat by Pulse 94 Oximetry Oxygen Delivery Room Air Method ( includes room air) HEAD: Is atraumatic normocephalic. EYES: Pupils equal round regular reactive light accommodation. Extraocular movements are normal. There is no conjunctival pallor. There is no scleral icterus. EARS: Tympanic membranes are intact. External auditory canals are clear. NOSE: There is no deviated nasal septum. There is no inflammation of the nasal mucous membrane. MOUTH: Mucous membranes of mouth are moist. Tongue is moist. There is no ulcers. TONGUE: There is no redness of the oropharynx. There is no exudates. SKIN: There is no skin rashes. There is no petechia or ecchymosis. There is no skin lesions. NECK: Supple. There is no JVD carotids are equal there is no bruit. There is no lymphadenopathy. There is no accessory muscle respiration use. Trachea central. LUNGS: There is diminished air entry prolonged expiration. There is no rhonchi rales or wheezing. On percussion there is hyperresonance. There is no chest wall tenderness. HEART: S1-S2 is heard. S1 now is of normal intensity. There is no S3 gallop. There is an S4 gallop. There is systolic murmur left sternal border and the apex with no radiation. There is no rub. ABDOMEN: Soft. There is nontender. There is no paraspinal megaly. Bowel sounds are well heard. EXTREMITIES: Femorals are well felt. Leg pulses well felt. There is no pedal edema. There is no DVT or cellulitis. There is no DVT or cellulitis. There is no cyanosis or clubbing. FEE CLERK: The patient is conscious awake alert oriented x3 with no focal deficit. PSYCHIATRIC: The patient judgment insight are intact his affect is normal. The patient's echocardiogram shows normal left ventricular wall motion and ejection fraction. There is no significant valvular disease. Unable to calculate) systolic pressure due to insufficient TR jet. The echo findings have been discussed with the patient. Note the echo was interpreted by me. Chest X-Ray 08/10/19 12:00 IMPRESSION: Borderline cardiomegaly without jesus pulmonary edema. Labs- All tests 24 hr 08/10/19 08/11/19 08/11/19 23:37 05:23 05:23 WBC 7.7 RBC 5.11 Hgb 14.4 Hct 41.3 MCV 81 MCH 28.1 MCHC 34.8 RDW 15.7 H Plt Count 220 PT INR Sodium Potassium Chloride Carbon Dioxide Anion Gap BUN Creatinine Est GFR ( Amer) Est GFR (MDRD) Non-Af Glucose Hemoglobin A1c % Calcium Magnesium Total Bilirubin Direct Bilirubin Neonat Total Bilirubin Neonat Direct Bilirubin Neonat Indirect Bili AST ALT Alkaline Phosphatase Troponin I < 0.012 < 0.012 Total Protein Albumin Triglycerides Cholesterol LDL Cholesterol Direct VLDL Cholesterol HDL Cholesterol TSH 08/11/19 08/11/19 08/11/19 05:23 05:23 05:23 WBC RBC Hgb Hct MCV MCH MCHC RDW Plt Count PT 15.2 INR 1.19 Sodium 137.5 Potassium 4.1 Chloride 108 H Carbon Dioxide 23 Anion Gap 7 BUN 17 Creatinine 1.06 Est GFR ( Amer) > 60 Est GFR (MDRD) Non-Af > 60 Glucose 112 H Hemoglobin A1c % 5.1 Calcium 8.7 Magnesium 2.1 Total Bilirubin 0.8 Direct Bilirubin 0.0 Neonat Total Bilirubin Not Reportable Neonat Direct Bilirubin Not Reportable Neonat Indirect Bili Not Reportable AST 22 ALT 21 Alkaline Phosphatase 80 Troponin I Total Protein 6.1 L Albumin 2.9 L Triglycerides 151 H Cholesterol 198.28 LDL Cholesterol Direct 141 H VLDL Cholesterol 30.2 HDL Cholesterol 30 L TSH 08/11/19 05:23 WBC RBC Hgb Hct MCV MCH MCHC RDW Plt Count PT INR Sodium Potassium Chloride Carbon Dioxide Anion Gap BUN Creatinine Est GFR ( Amer) Est GFR (MDRD) Non-Af Glucose Hemoglobin A1c % Calcium Magnesium Total Bilirubin Direct Bilirubin Neonat Total Bilirubin Neonat Direct Bilirubin Neonat Indirect Bili AST ALT Alkaline Phosphatase Troponin I Total Protein Albumin Triglycerides Cholesterol LDL Cholesterol Direct VLDL Cholesterol HDL Cholesterol TSH 0.90 IMPRESSION/RECOMMENDATION: 1. Paroxysmal atrial fibrillation. At present converted to sinus rhythm. Hence would recommend discontinue the patient's Cardizem drip and place the patient on p.o. Cardizem. The patient has a prior history of to CVS. Hence his Socrates Vascor is at least 3. Hence chronic chronic anticoagulation indicated. Hence we will start the patient on Eliquis. The patient has no bleeding c ontraindications for starting Eliquis. The risks benefits and stroke prophylaxis benefits discussed with the patient the risk of bleeding also discussed. 2. COPD: No evidence of acute exacerbation. 3. Chronic pain syndrome with lower extremity pain. . 4. History of TIA x2 in the past. Medical regimen management plan discussed with the attending provider on the case. Medical decision making is of high complexity. 60 minutes spent with the patient with more than 50% time spent on direct patient care. Cardiac status is stable. The patient is being discharged. The patient will follow-up with me next week on a Wednesday at 12 noon. This is been discussed with the patient. The patient does have my cell phone number to contact me if any problems. Hence will sign off..
== END 2019-08-11 14:45 | disposition home or self-care (01) | DRG 310 ==
LOC: ER 11:42 → EH 13:37 → 3W 19:38
PROVIDERS: ADMIT Internal Medicine; ATTEND Internal Medicine
DX: I48.0 Paroxysmal atrial fibrillation (principal); I10 Essential (primary) hypertension; J44.9 Chronic obstructive pulmonary disease, unspecified; Z66 Do not resuscitate; Z86.73 Personal history of transient ischemic attack (TIA), and cerebral infarction without residual deficits; Z87.891 Personal history of nicotine dependence; Z90.49 Acquired absence of other specified parts of digestive tract
CPT/HCPCS: 36415; 71045; 80053; 80061; 80307; 81001; 82550; 83036; 83605; 83735; 83880; 84443; 84484; 85025; 85027; 85610; 87040; 93005; 93010; 93306; 94640; 96365; 96375; 99291; J1940; J3490; J7614; J7620; S0028

== ENCOUNTER 2019-08-27 08:27 | Emergency (ER) | payer MEDICARE, OTHER ==
[2019-08-27 09:33] VITALS: BP 130/82
[2019-08-27] MEDS ORDERED: IPRATROPIUM/ALBUTEROL 0.5-2.5 MG/3 ML AMPUL NEB ONE (10:47)
--- NOTE | 2019-08-27 10:47 | ER Document Report ---
ED General - General Chief Complaint: Shortness Of Breath Stated Complaint: SHORTNESS OF BREATH Time Seen by Provider: 08/27/19 10:08 Mode of Arrival: Ambulatory Information source: Patient Notes: 64-year-old male presents to the emergency department with a complaint of cough, chest tightness and shortness of breath related to the coughing episodes. He had a history of pneumonia in April of this year. States that he has never quite gotten over it. He has had intermittent problems. He has been seen by supervisor cd area he is on Eliquis, states he has history of atrial fibrillation, he also is using an inhaler. He is not a smoker and has not been diagnosed with asthma or COPD. His symptoms of cough and tightness has worsened over the past week. - Related Data Allergies/Adverse Reactions: Penicillins Allergy (Verified 08/27/19 10:42) Past Medical History - Social History Smoking Status: Unknown if Ever Smoked Family History: Reviewed & Not Pertinent - Past Medical History Cardiac Medical History: Reports: Hx Atrial Fibrillation Psychiatric Medical History: Denies: Hx Depression Past Surgical History: Reports: Hx Cholecystectomy, Hx Herniorrhaphy - Ventral. repaired with mesh Review of Systems - Review of Systems Notes: Constitutional: Negative for fever. HENT: Negative for sore throat. Eyes: Negative for visual changes. Cardiovascular: Negative for chest pain. Respiratory: See HPI Gastrointestinal: Negative for abdominal pain, vomiting or diarrhea. Genitourinary: Negative for dysuria. Musculoskeletal: Negative for back pain. Skin: Negative for rash. Neurological: Negative for headaches, weakness or numbness. 10 point ROS negative except as marked above and in HPI. Physical Exam - Vital signs Vitals: Temp Pulse Resp BP Pulse Ox 98.7 F 155 H 21 H 130/82 H 97 08/27/19 09:26 08/27/19 09:26 08/27/19 09:26 08/27/19 09:26 08/27/19 09:26 - Notes Notes: PHYSICAL EXAMINATION: Physical Exam: General: Well-nourished well-developed in no acute distress HEENT: NC/AT, pupils equal round and reactive to light, MM moist,nares clear, oropharynx clear, airway patent Neck: supple, no adenopathy, no masses. Good range of motion Lungs: clear, + mild wheezing, no rales no rhonchi CVS: Regular rate and rhythm no murmur gallop or rub Abdomen: Soft, active, nontender, no masses, no hepatosplenomegaly Ext: No edema, clubbing or cyanosis. Neuro: Alert and responsive, moving all 4 extremities on command, cranial nerves intact, no focal findings Skin: Intact no open lesions, no rash PSYCH: Normal mood, normal affect. Course - Vital Signs Vital signs: Temp Pulse Resp BP Pulse Ox 98.7 F 155 H 29 H 130/82 H 91 L 08/27/19 09:35 08/27/19 09:26 08/27/19 12:00 08/27/19 09:26 08/27/19 12:00 - Laboratory Result Diagrams: 08/27/19 11:03 08/27/19 11:03 Laboratory results interpreted by me: 08/27/19 08/27/19 08/27/19 11:03 11:03 11:03 WBC 11.7 H RDW 14.8 H Lymph % (Auto) 12.9 L Eos % (Auto) 13.9 H Absolute Eos (auto) 1.6 H Sodium 136.4 L Glucose 112 H NT-Pro-B Natriuret Pep 297 H Albumin 3.3 L - Diagnostic Test Radiology reviewed: Image reviewed, Reports reviewed Radiology results interpreted by me: 08/27/19 12:29 Chest x-ray: No acute cardiopulmonary findings. - EKG Interpretation by Me EKG shows normal: Sinus rhythm, [place], Intervals, ST-T Waves - No STT wave abnormalities, no ischemic changes. Interpretation normal electrocardiogram without findings suggestive of CAD. Rate: Normal - 79 Rhythm: NSR Discharge - Discharge Clinical Impression: Bronchospasm Acute bronchitis Qualifiers: Bronchitis organism: other organism Qualified Code(s): J20.8 - Acute bronchitis due to other specified organisms Condition: Good Disposition: HOME, SELF-CARE Instructions: Bronchitis With Bronchospasm (Wheezing) ([facility]) Additional Instructions: You are seen in the emergency department with cough, shortness of breath and wheezing. Chest x-ray was negative and labs are normal likely bronchitis with secondary bronchospasms. You have been discharged with prescriptions for prednisone and antibiotic doxycycline. It is suggested that you follow-up with your primary care doctor for further treatment and possible referral for pul monary evaluation if you are not improving. Your symptoms are worsening or if you have other difficulties you may return to the emergency department for further evaluation and treatment. HOME CARE INSTRUCTIONS & INFORMATION: Thank you for choosing us for your medical needs. We hope you're satisfied with the care you received. After you leave, you must properly care for your problem and, at the same time, observe its progress. Any condition can change. Some illnesses can change rapidly over hours or days. If your condition worsens, return to the Emergency Department or see your physician promptly. ABOUT YOUR X-RAYS AND EKG'S: If you had an EKG or X-rays taken, they have been read by the Emergency Physician. The X-rays and EKG's will also be read by a Radiologist or Audio Visual Equipment Rental Clerk within 24 hours. If discrepancies are noted, you will be notified by telephone. Please be certain the ED has a correct telephone number & address where you can be reached. Also, realize that some fractures or abnormalities do not show up on initial X-rays. If your symptoms continue, see your physician. ABOUT YOUR LABORATORY TEST: If you had laboratory tests, the results have been reviewed by the Emergency Physician. Some test results (for example cultures) may not be available for several days. You will be contacted if any test result shows you need additional treatment. Please be certain the ED has a correct telephone number and address where you can be reached. ABOUT YOUR MEDICATIONS: You will receive instructions on how to take your medicine on the prescription label you receive. Additional information may be provided by the Pharmacy. If you have questions afterwards, call the ED for clarification or further instructions. Some prescribed medications may cause drowsiness. Do not perform tasks such as driving a car or operating machinery without consulting your Pharmacist. If you feel you need a refill of pain medication, your condition will need re-evaluation. Please do not call for a refill of any medication. ABOUT YOUR SIGNATURE: Signature of this document acknowledges to followin. Understanding that you received emergency treatment and that you may be released before al medical problems are known or treated. Please be certain the ED has a correct phone number & address where you can be reached. 2. Acknowledgement that you will arrange for follow-up care as recommended. 3. Authorization for the Emergency Physician to provide information to your follow-up Physician in order to maximize your care. AT ANY TIME, IF YOUR SYMPTOMS CHANGE SIGNIFICANTLY OR WORSEN OR YOU DEVELOP NEW SYMPTOMS, RETURN TO THE EMERGENCY DEPARTMENT IMMEDIATELY FOR RE-EVALUATION. OUR GOAL IS TO PROVIDE EXCELLENT MEDICAL CARE! WE HOPE THAT WE HAVE MET YOUR EXPECTATIONS DURING YOUR EMERGENCY DEPARTMENT VISIT AND THAT YOU FEEL YOU HAVE RECEIVED EXCELLENT CARE! Prescriptions: Prednisone [Deltasone 20 mg Tablet] 1 tab PO BID 5 Days #10 tablet Doxycycline Monohydrate 100 mg PO BID #20 capsule
--- NOTE | 2019-08-27 10:49 | RADIOLOGY REPORT (SQ) ---
EXAM DESCRIPTION: CHEST SINGLE VIEW IMAGES COMPLETED DATE/TIME: 08/27/2019 10:23 am REASON FOR STUDY: shortness of breath COMPARISON: Chest films 08/10/2019 EXAM PARAMETERS: NUMBER OF VIEWS: One view. TECHNIQUE: Single frontal radiographic view of the chest acquired. RADIATION DOSE: NA LIMITATIONS: None. FINDINGS: LUNGS AND PLEURA: Densities over the periphery of the right and left upper chest, question calcific pleural plaque versus chronic pulmonary fibrosis. No acute infiltrates. No pleural effusion or pneumothorax. MEDIASTINUM AND HILAR STRUCTURES: Prominent central pulmonary arteries. HEART AND VASCULAR STRUCTURES: Heart normal in size. Normal vasculature. BONES: No acute findings. HARDWARE: None in the chest. OTHER: No other significant finding. IMPRESSION: No acute findings. TECHNICAL DOCUMENTATION: JOB ID: [id number] 2010 [employer]- All Rights Reserved Reading location - IP/workstation name: [email or web address]
[2019-08-27 11:30] LABS: ABSOLUTE BASOPHILS # (AUTO) 0.1 10^3/uL (0.0-0.2); ABSOLUTE EOSINOPHILS # (AUTO) 1.6 10^3/uL (0.0-0.6); ABSOLUTE LYMPHOCYTES (AUTO) 1.5 10^3/uL (0.5-4.7); ABSOLUTE NEUT (AUTO) 7.4 10^3/uL (1.7-8.2); BASOPHILS % (AUTO) 1.2 % (0-2); EOSINOPHILS % (AUTO) 13.9 % (0-6); HEMATOCRIT 43.6 % (37.9-51.0); HEMOGLOBIN 15.1 g/dL (13.5-17.0); LYMPHOCYTES % (AUTO) 12.9 % (13-45); MEAN CORPUSCULAR HEMOGLOBIN 28.2 pg (27.0-33.4); MEAN CORPUSCULAR HGB CONC 34.6 g/dL (32.0-36.0); MEAN CORPUSCULAR VOLUME 82 fl (80-97); MONOCYTES % (AUTO) 8.6 % (3-13); PLATELET COUNT 266 10^3/uL (150-450); RED BLOOD COUNT 5.34 10^6/uL (4.35-5.55); RED CELL DISTRIBUTION WIDTH 14.8 % (11.5-14.0); SEGMENTED NEUTROPHILS % (AUTO) 63.4 % (42-78); TOTAL CELLS COUNTED % (AUTO) 100 %; WHITE BLOOD COUNT 11.7 10^3/uL (4.0-10.5)
[2019-08-27 11:45] LABS: ALBUMIN 3.3 g/dL (3.5-5.0); ALKALINE PHOSPHATASE 87 U/L (38-126); ANION GAP 5 (5-19); ASPARTATE AMINO TRANSFERASE 19 U/L (17-59); BLOOD UREA NITROGEN 13 mg/dL (7-20); CALCIUM 8.7 mg/dL (8.4-10.2); CARBON DIOXIDE 26 mmol/L (22-30); CHLORIDE 105 mmol/L (98-107); GLUCOSE 112 mg/dL (75-110); POTASSIUM 4.6 mmol/L (3.6-5.0); TOTAL PROTEIN 6.7 g/dL (6.3-8.2)
--- NOTE | 2019-08-27 17:21 | EKG REPORT ---
SEVERITY:- NORMAL ECG - SINUS RHYTHM : Confirmed by: Jodie Laurent MD 27-Aug-2019 17:20:20
== END 2019-08-27 13:05 | disposition home or self-care (01) ==
LOC: ER 08:27
DX: J20.8 Acute bronchitis due to other specified organisms (principal); R06.02 Shortness of breath; R05 Cough; R07.89 Other chest pain; I48.91 Unspecified atrial fibrillation; Z79.01 Long term (current) use of anticoagulants; Z87.01 Personal history of pneumonia (recurrent); Z88.0 Allergy status to penicillin
CPT/HCPCS: 36415; 71045; 80053; 83880; 85025; 93005; 93010; 94640; 99285

== ENCOUNTER → 2020-02-09 | Outpatient (CLI) | payer MEDICARE, OTHER ==
--- NOTE | 2020-02-09 09:37 | RADIOLOGY REPORT (SQ) ---
EXAM DESCRIPTION: CT CHEST WITHOUT IMAGES COMPLETED DATE/TIME: 02/09/2020 8:27 am REASON FOR STUDY: (R91.1)SOLITARY PULMONARY NODULE R91.1 SOLITARY PULMONARY NODULE COMPARISON: 09/22/2019 TECHNIQUE: CT scan performed of the chest without intravenous contrast. Images reviewed with lung, soft tissue and bone windows. Reconstructed coronal and sagittal MPR images reviewed. All images st ored on PACS. All CT scanners at this facility use dose modulation, iterative reconstruction, and/or weight based d osing when appropriate to reduce radiation dose to as low as reasonably achievable (ALARA). [facility]: Dose Right [facility]: CareDose [facility]: Dose Right [facility]: Teradose 4D [facility]: Smart Zeptor RADIATION DOSE: CT Rad equipment meets quality standard of care and radiation dose reduction techniq ues were employed. CTDIvol: 14.6 mGy. DLP: 602 mGy-cm. mGy. LIMITATIONS: No technical limitations. FINDINGS: LUNGS AND PLEURA: Again seen are scattered areas of bilateral subpleural interstitial and interlobular thickening with mild associated ground-glass attenuation, stable from prior. No evidenc e of superimposed airspace disease. Previously described more confluent nodular density within the p eripheral right lower lobe has largely resolved. No new suspicious discrete nodules or masses. No p leural effusion or pneumothorax. HILAR AND MEDIASTINAL STRUCTURES: Stable non pathologically enlarged pretracheal and prevascular lymp h nodes. Largest prevascular lymph node measures 9 mm in short axis by 1.5 cm in long axis, stable. HEART AND VASCULAR STRUCTURES: Trace pericardial effusion. Scattered coronary atherosclerosis. Card iomegaly. UPPER ABDOMEN: No acute intra-abdominal/ pelvic findings. Prior cholecystectomy. THYROID AND OTHER SOFT TISSUES: No masses. No adenopathy. BONES: No significant finding. HARDWARE: None in the chest. OTHER: No other significant findings. IMPRESSION: 1. Resolution of previously seen 6 mm right lower lobe pulmonary nodule compared to exa m dated 09/22/2019. No new discrete nodules or masses. 2. Grossly stable mild nonspecific subpleural interstitial thickening, suggestive of mild fibrosis. TECHNICAL DOCUMENTATION: JOB ID: [id number] Quality ID # [id number]: Final reports with documentation of one or more dose reduction techniques (e.g., Au tomated exposure control, adjustment of the mA and/or kV according to patient size, use of iterative reconstruction technique) 2010 [facility] [employer]- All Rights Reserved Reading location - IP/workstation name: [email or web address]
== END ==
LOC: RAD 08:17
PROVIDERS: ATTEND Internal Medicine Pulmonary Disease
DX: R91.1 Solitary pulmonary nodule (principal); I25.10 Atherosclerotic heart disease of native coronary artery without angina pectoris; I51.7 Cardiomegaly
CPT/HCPCS: 71250